=== PATIENT | male | born 1970 | race Two or more races ===

== ENCOUNTER 2023-07-04 10:10 | Emergency (ER) | payer OTHER ==
[~2023-07-04] VITALS: Ht 167.6 cm; Wt 70.3 kg
== END 2023-07-04 13:32 | disposition home or self-care (01) ==
LOC: ER 10:10
DX: R10.9 Unspecified abdominal pain (principal); K29.70 Gastritis, unspecified, without bleeding; Z88.6 Allergy status to analgesic agent; K29.90 Gastroduodenitis, unspecified, without bleeding